=== PATIENT | female | born 1950 | race Two or more races ===

== ENCOUNTER 2020-06-11 14:06 | Outpatient (REF) | payer OTHER, SELFPAY | END 2020-06-11 14:07 | disposition home or self-care (01) | LOC: HO.LAB 14:06 | PROVIDERS: PCP Internal Medicine; Visit Provider Internal Medicine | DX: Z20.828 Contact with and (suspected) exposure to other viral communicable diseases (principal) | CPT/HCPCS: C9803; U0003 ==

== ENCOUNTER 2020-07-18 07:42 | Outpatient (REF) | payer MEDICARE, SELFPAY ==
--- NOTE | 2020-07-18 | MM_ITS ---
EXAMINATION: MM SCREENING DIGITAL BREAST TOMOSYNTHESIS, BILATERAL CLINICAL INFORMATION: Screening. Asymptomatic. The lifetime risk of breast cancer based on the Tyrer-Cuzick Model is 4%. COMPARISON: Mammography: 07/13/2019, 06/19/2018, 05/26/2017 TECHNIQUE: Digital breast tomosynthesis is performed in both the craniocaudal and mediolateral oblique views along with computer-aided detection (CAD). Synthesized 2D images are generated from the tomosynthesis. FINDINGS: There are scattered areas of fibroglandular density (ACR BI-RADS breast composition Category b). There are no significant masses, abnormal calcifications, or other abnormalities. The axilla and skin contours are unremarkable. There are no significant changes from prior studies. MM/MM tomosynthesis screening BI IMPRESSION: No mammographic evidence of malignancy. ASSESSMENT: BI-RADS 1: Negative RECOMMENDATION: Routine annual mammography screening. This patient's information was entered into a reminder system with a target due date for their next mammogram.
== END 2020-07-18 07:43 | disposition home or self-care (01) ==
LOC: HO.MAMMO 07:42
PROVIDERS: PCP Internal Medicine; Visit Provider Internal Medicine
DX: Z12.31 Encounter for screening mammogram for malignant neoplasm of breast (principal)
CPT/HCPCS: 77063; 77067

== ENCOUNTER 2020-09-23 08:43 | Outpatient (REF) | payer MEDICARE, SELFPAY ==
[2020-09-23 09:55] LABS: Alanine Aminotransferase 15 U/L (0-31); Albumin Level 4.3 g/dL (3.5-5.0); Alkaline Phosphatase 74 U/L (39-117); Anion Gap 10 (12-20); Aspartate Amino Transferase 14 U/L (5-31); Bilirubin Total 0.6 mg/dL (0.0-1.0); Blood Urea Nitrogen 13 mg/dL (9-16); Calcium 9.3 mg/dL (8.4-10.2); Carbon Dioxide 28 mmol/L (22-29); Chloride 105 mmol/L (96-108); Cholesterol 142 mg/dL; Estimated Glomerular Filt Rate > 60; Glucose Fasting 104 mg/dL (60-99); HDL Cholesterol 65 mg/dL; LDL Cholesterol Calculated 53 mg/dl; Potassium 4.4 mmol/L (3.3-5.1); Sodium 139 mmol/L (135-145); Triglycerides 120 mg/dL
[2020-09-23 10:11] LABS: Vitamin D 25-OH Total 54.8 ng/mL (>30)
== END 2020-09-23 08:44 | disposition home or self-care (01) ==
LOC: HO.LAB 08:43
PROVIDERS: PCP Internal Medicine; Visit Provider Internal Medicine
DX: E03.9 Hypothyroidism, unspecified (principal)
CPT/HCPCS: 36415; 80053; 80061; 82306; 84443

== ENCOUNTER 2020-09-28 08:26 | Outpatient (REF) | payer MEDICARE, SELFPAY ==
[2020-09-28 11:05] LABS: Thyroid Stimulating Hormone 3.78 uIU/mL (0.32-4.0)
== END 2020-09-28 08:27 | disposition home or self-care (01) ==
LOC: HO.10HDL 08:26
PROVIDERS: Visit Provider Internal Medicine Endocrinology, Diabetes & Metabolism
DX: E03.9 Hypothyroidism, unspecified (principal); M85.89 Other specified disorders of bone density and structure, multiple sites
CPT/HCPCS: 36415; 84439; 84443

== ENCOUNTER 2020-11-11 12:06 | Outpatient (REF) | payer MEDICARE, SELFPAY ==
--- NOTE | ~2020-11-11 | XR_ITS ---
EXAMINATION: XR FOOT, LEFT CLINICAL INFORMATION: Pain in the left foot COMPARISON: None TECHNIQUE: AP, lateral, and oblique views of the left foot. FINDINGS: There is no acute fracture or subluxation. Mild hallux valgus with joint space narrowing at the first metatarsophalangeal joint. Small osteophytes. The soft tissues are unremarkable. No ankle joint effusion. XR/XR foot LT min 3V IMPRESSION: Hallux valgus with mild degenerative change at the first metatarsophalangeal joint.
== END 2020-11-11 12:07 | disposition home or self-care (01) ==
LOC: HO.XRAY 12:06
PROVIDERS: PCP Internal Medicine; Visit Provider Internal Medicine
DX: M79.672 Pain in left foot (principal)
CPT/HCPCS: 73630

== ENCOUNTER 2021-02-10 10:41 | Outpatient (REF) | payer MEDICARE, SELFPAY ==
[2021-02-10 13:58] LABS: Thyroid Stimulating Hormone 1.67 uIU/mL (0.32-4.0)
[2021-02-15 13:37] LABS: N-Telopeptide 25 (see note); NTXCreaRU 127 mg/dL (20-275)
== END 2021-02-10 10:42 | disposition home or self-care (01) ==
LOC: HO.10HDL 10:41
PROVIDERS: Visit Provider Internal Medicine Endocrinology, Diabetes & Metabolism
DX: E03.9 Hypothyroidism, unspecified (principal); M85.89 Other specified disorders of bone density and structure, multiple sites
CPT/HCPCS: 36415; 82523; 84439; 84443

== ENCOUNTER → 2021-02-17 09:08 | Outpatient (BNVA) | payer MEDICARE, SELFPAY | PROVIDERS: PCP Internal Medicine; Visit Provider Internal Medicine Endocrinology, Diabetes & Metabolism | DX: E04.2 Nontoxic multinodular goiter (principal); E03.8 Other specified hypothyroidism; M85.80 Other specified disorders of bone density and structure, unspecified site | CPT/HCPCS: 99212 ==

== ENCOUNTER 2021-03-04 10:13 | Emergency (ER) | payer MEDICARE, SELFPAY ==
[2021-03-04 10:45] VITALS: BP 158/88; PULSE 80; RESP 16; TEMP 36.7; O2SAT 97
[2021-03-04 11:14] VITALS: BMI 26.8
--- NOTE | 2021-03-04 11:53 | ED_ITS ---
HPI - Skin/Abscess/Foreign Bdy General Chief complaint: Skin/Abscess/Foreign Body Stated complaint: rash Time Seen by Provider: 03/04/21 11:53 Source: patient and respiratory care specialist Mode of arrival: ambulatory Limitations: no limitations and language barrier History of Present Illness HPI narrative: 70-year-old female here with complaints of itching rash for 5 days. Worsened at night time. No new medications, detergents, products, foods. Using Benadryl which does give her some improvement Related Data Previous Rx's Medication Instructions Recorded calcium carbonate 600 mg calcium 600 mg PO BID 90 Days #180 tab 02/17/21 (1,500 mg) tablet cholecalciferol (vitamin D3) 25 25 mcg PO DAILY #90 tab 02/17/21 mcg (1,000 unit) tablet levothyroxine 25 mcg tablet 25 mcg PO QAM 90 Days #90 tab 02/17/21 hydrocortisone 2.5 % topical cream 1 appl TOPICAL TID PRN #20 g 03/04/21 hydroxyzine HCl 25 mg tablet 25 mg PO TID PRN #14 tab 03/04/21 Allergies Allergy/AdvReac Type Severity Reaction Status Date / Time aspirin [ASA] Allergy Mild pruritus Verified 09/30/20 11:14 and palpitations nitrofurantoin [Macrobid] Allergy Unknown dizziness Verified 09/30/20 11:14 Penicillins [PENICILLINS] Allergy Unknown Rash Verified 09/30/20 11:14 Darvon AdvReac Mild swelling Uncoded 09/30/20 11:14 Review of Systems Review of Systems: Yes all other systems are reviewed and are negative Constitutional: Constitutional: Reports no additional constitutional complaints, Denies body ache(s), Denies chills, Denies fever(s), Denies headache(s) and Denies weakness Eyes: Eyes: Reports no additional eye complaints and Denies change in vision ENT: Reports system reviewed and no additional complaints, except as documented, Denies dizziness, Denies headache(s), Denies nasal congestion, Denies nasal discharge and Denies neck pain Cardiovascular: Cardiovascular: Reports no additional cardiovascular complaints, Denies chest pain, Denies leg edema and Denies dyspnea Respiratory: Respiratory: Reports no additional respiratory complaints, Denies cough and Denies dyspnea Gastrointestinal: Gastrointestinal: Reports no additional gastrointestinal complaints, Denies abdominal pain, Denies diarrhea, Denies nausea and Denies vomiting Genitourinary: Genitourinary: Reports no additional female genitourinary complaints and Denies urinary incontinence Musculoskeletal: Musculoskeletal: Reports no additional musculoskeletal complaints, Denies back pain, Denies arthralgias, Denies joint swelling, Denies neck pain, Denies numbness and Denies tingling Integumentary/Breasts: Skin/Breast: Reports system reviewed and no additional complaints, except as docu and Reports rash Neurologic: Reports system reviewed and no additional complaints, except as documented, Denies Abnormal speech present, Denies dizziness, Denies headache(s), Denies numbness, Denies tingling and Denies weakness PMFSH Past Medical History Attestation statement: The following information was validated with the patient. Source: old records reviewed and nursing notes reviewed Medical History Hypertension, essential Hypothyroidism Hypovitaminosis D Left foot pain Non-toxic multinodular goiter Osteopenia Subclinical hypothyroidism Surgical History History of arthroscopy of left knee History of cataract surgery History of removal of cyst History of tubal ligation Family History Family History Father Thyroid cancer Mother Hypertension Daughter In good health Brother In good health Sister In good health Social History Social History Alcohol intake: never Advance Directives: No Advance Directives Information Provided: Yes Physical Exam Vital Signs: Vital Signs: Last Vital Signs Temp 98.0 F 03/04/21 10:45 Pulse 80 03/04/21 10:45 Resp 16 03/04/21 10:45 BP 158/88 H 03/04/21 10:45 Pulse Ox 97 03/04/21 10:45 Body Mass Index 26.8 Const: General: cooperative, healthy appearing, comfortable and no acute distress Orientation/consciousness: patient oriented x3 Limitations: no limitations HENMT: Head: Yes normal to inspection Ears: hearing grossly normal bilaterally General nose exam: Normal external nose present Face and sinus: Yes normal facial exam Mouth: Normal oral and palatal mucosa present Throat: Yes posterior oropharynx normal Eyes: General: appearance normal, both eyes and all related structures Pupils: Equal, round and reactive pupils present Neck: Neck: Yes normal visual inspection Chest: Chest palpation & inspection: normal inspection of the chest Resp: Effort & Inspection: normal respiratory effort Auscultation: clear to auscultation bilaterally Cardio: Rate: regular rate Rhythm: regular rhythm Peripheral pulses: Peripheral pulses 2+ throughout GI: Inspection: Yes normal to inspection Palpation (GI): Soft to palpation and nontender Auscultation: normal bowel sounds Back/Spine/Pelvis: Thoracic/Lumbar Spine: thoracic and lumbar spine normal to inspection Skin: Other: Insect bites noted over trunk, upper and lower extremities. Neuro: General: patient oriented x3, no focal motor deficits and normal sensation to monofilament Cranial nerves: Yes Equal, round and reactive pupils present Cognition (Neuro): normal cognition Speech: No Abnormal speech present Gait exam (Neuro): Normal gait present Motor exam (neuro): 5/5 motor strength present throughout Extrem: General: Yes normal to inspection Course Course Course Narrative: 70-year-old female here with itching rash for 5 days. Exam is consistent with insect bites. Rash is worsened at night time with it pain is worsened at night time. Likely bedbugs. We discussed treatment with supportive care. She needs to go home shoulder limited bending. She also is discussed with her landlord today may, evaluate her apartment. Reviewed worrisome signs and symptoms when to return to the emergency department. Comfortable discharge home. Discharge Plan Discharge Clinical Impression: Bed bug bite Patient Disposition: Home, Self-Care Instructions: Insect Bite or Sting (ED), Bed Bugs (ED) Additional Instructions: Wash all the linen in hot water Notify your landlord so they may come inspect your apartment Prescriptions: New hydrocortisone 2.5 % cream 1 appl topical TID PRN (Reason: rash) Qty: 20 RF: 0 hydroxyzine HCl 25 mg tablet 25 mg PO TID PRN (Reason: itching) Qty: 14 RF: 0 No Action calcium carbonate 600 mg calcium (1,500 mg) tablet 600 mg PO BID 90 Days Qty: 180 RF: 3 cholecalciferol (vitamin D3) 25 mcg (1,000 unit) tablet 25 mcg PO DAILY Qty: 90 RF: 2 levothyroxine 25 mcg tablet 25 mcg PO QAM 90 Days Qty: 90 RF: 3 Referrals: Ana Dean MD [Primary Care Provider] - 2 days Interventions: ED Discharge Assessment Last Done: 03/04/21 12:52 Discharge Date/Time: 03/04/21 12:53 Print Language: Maltese
== END 2021-03-04 12:53 | disposition home or self-care (01) ==
PROVIDERS: Emergency Provider Emergency Medicine; PCP Internal Medicine
DX: R21 Rash and other nonspecific skin eruption (principal); I10 Essential (primary) hypertension; Z79.899 Other long term (current) drug therapy
CPT/HCPCS: 99283

== ENCOUNTER 2021-03-08 09:09 | Outpatient (REF) | payer MEDICARE, SELFPAY ==
--- NOTE | ~2021-03-08 | US_ITS ---
EXAMINATION: US THYROID CLINICAL INFORMATION: Follow-up nodules. COMPARISON: None. TECHNIQUE: Linear transducer grayscale and color Doppler examination with attention to the region of the thyroid. FINDINGS: SIZE: Measurements of the thyroid lobes and nodules are given in sagittal, anteroposterior and transverse dimensions respectively. Right Thyroid Lobe: 3.8 x 2.1 x 1.7 cm, volume 6.1 mL. Previously it measured 3.5 x 1.6 x 1.7 cm and volume 5.0 mL. Parenchyma: The gland echotexture is heterogeneous. Thyroid vascularity is hypervascular. Left Thyroid Lobe: 3.3 x 1.9 x 1.6 cm, volume 1.6 mL. Previously it measured 3.8 x 1.6 x 1.8 cm. Parenchyma: The gland echotexture is heterogeneous. Thyroid vascularity is hypervascular. Isthmus: 0.3 cm in maximum AP dimension. Estimated total number of nodules greater than or equal to 1 cm: 2. Die Repair nodules are described as follows: 1. Location: Right upper pole. Size: 0.73 x 0.41 x 0.56 cm, volume 0.09 mL. Previously it measured 0.67 x 0.41 x 0.59 cm and volume 0.08. Nodule characteristics: Composition: Indeterminate. Echogenicity: Anechoic (0). Shape: Wider Margins: Smooth (0). Echogenic Foci: None (0). ACR TI-RADS total points: 5 ACR TI-RADS category: 4 2. Location: Right midpole. Size: 1.44 x 1.12 x 1.37 cm, volume 1.2 mL. Previously it measured 1.33 x 0.96 x 1 0.34 mL of a volume 0.90 mL. Nodule characteristics: Hypoechoic Composition: Solid (2). Echogenicity: Hyperechoic (1). Shape: Wider Margins: Smooth (0). Echogenic Foci: None (0). ACR TI-RADS total points: 4 ACR TI-RADS category: 3 or 4 3. Location: Right lower pole. Size: 0.53 x 0.54 x 0.39 cm, volume 0.06 mL. Previously it measured 0.53 x 0.52 x 0.39 cm and volume 0.06. Nodule characteristics: Composition: Solid (2). Echogenicity: Hyperechoic (1). Shape: Wider Margins: Smooth (0). Echogenic Foci: None (0). ACR TI-RADS total points: 4 ACR TI-RADS category: The are 4 4. Location: Left upper pole. Size: 1.58 x 1.02 x 1.35 cm, volume 1.13 mL. Previously it measured 1.57 x 1.15 x 1.44 cm Nodule characteristics: Composition: indeterminate. Echogenicity: Hyperechoic (1). Shape: Wider Margins: Ill-defined (0). Echogenic Foci: Punctate echogenic foci (3). ACR TI-RADS total points: 6 ACR TI-RADS category: 4 NODES: No lymphadenopathy is seen in the tissue surrounding the thyroid gland. US/US thyroid IMPRESSION: Multiple bilateral thyroid nodules, only 2 nodules are greater than 2 cm right midpole and left upper pole. Recommend one-year follow-up. ACR TI-RADS RECOMMENDATION REFERENCE: Ultrasound-guided fine-needle aspiration, followup ultrasound, no further follow up. * TR1 (0 point) and TR 2 (2 points): No FNA or follow up * TR3 (3 points): FNA if more than or equal to 2.5 cm in maximum dimension, followup ultrasound in 1, 3 and 5 years if 1.5 to 2.4 cm in maximum dimension. * TR4 (4-6 points): FNA if more than or equal to 1.5 cm in maximum dimension, followup ultrasound in 1, 2, 3 and 5 years if 1 to 1.4 cm in maximum dimension. * TR5 (more than or equal to 7 points): FNA if more than or equal to 1 cm in maximum dimension, followup ultrasound every year for 5 years if 0.5 to 0.9 cm in maximum dimension. * TR3, TR4 or TR5 nodules that are below the size threshold for follow up receive no follow up.
== END 2021-03-08 09:10 | disposition home or self-care (01) ==
LOC: HO.US 09:09
PROVIDERS: Visit Provider Internal Medicine Endocrinology, Diabetes & Metabolism
DX: E04.2 Nontoxic multinodular goiter (principal)
CPT/HCPCS: 76536

== ENCOUNTER 2021-03-26 10:59 | Emergency (ER) | payer MEDICARE, SELFPAY ==
[2021-03-26 11:31] VITALS: BP 155/86; PULSE 80; RESP 18; TEMP 36.7; O2SAT 98; BMI 26.6
[2021-03-26 11:59] LABS: Glucose Urine UA NEG (NEG); Leukocyte Esterase Urine 3+ (NEG); Nitrite Urine NEG (NEG); UACC Culture Trigger YES; Urine Blood 3+ (NEG); Urine Ketones NEG (NEG); Urine Protein NEG (NEG-TRACE)
[2021-03-26 12:01] LABS: Appearance Urine CLOUDY; Color Urine YELLOW
--- NOTE | 2021-03-26 12:07 | ED_ITS ---
HPI - Female Genitourinary General Chief complaint: Urogenital-Female Stated complaint: blood in urine Time Seen by Provider: 03/26/21 12:03 Source: patient Mode of arrival: ambulatory Limitations: language barrier (Malaysian-speaking) History of Present Illness HPI Narrative: 71-year-old female who has had recurrent UTIs in the past presenting to the ED with complaints of suprapubic abdominal tenderness with associated dysuria/urinary urgency/frequency/foul-smelling urine x5 days and mild hematuria that started today. Reports that she hold her urine allowed when she is at [facility]. Denies any fevers, chills, radiation of the abdominal pain, flank pain, gross hematuria, vaginal bleeding, clots, diarrhea or constipation, abnormal vaginal discharge or any other symptoms complaints or concerns at this time. MD elicited complaint: dysuria, UTI and other (Hematuria) Onset (ago): day(s) (Five days worse today) Location of symptoms: suprapubic, vaginal and pelvis Severity: moderate Female Urogenital Radiation: Non-Radiating Quality of pain: cramping, burning and aching Consistency: intermittent and progressively worsening Vaginal discharge: none Vaginal bleeding: none Urinary symptoms: Dysuria, Urgency, Frequency, Hematuria, Foul Smelling Urine and Difficulty Urinating Exacerbating factors: urination Relieving factors: none Associated symptoms: other (Suprapubic abdominal tenderness) Treatment prior to arrival: none Sexual activity: No Patient : No Related Data Previous Rx's Medication Instructions Recorded calcium carbonate 600 mg calcium 600 mg PO BID 90 Days #180 tab 02/17/21 (1,500 mg) tablet cholecalciferol (vitamin D3) 25 25 mcg PO DAILY #90 tab 02/17/21 mcg (1,000 unit) tablet levothyroxine 25 mcg tablet 25 mcg PO QAM 90 Days #90 tab 02/17/21 hydrocortisone 2.5 % topical cream 1 appl TOPICAL TID PRN #20 g 03/04/21 hydroxyzine HCl 25 mg tablet 25 mg PO TID PRN #14 tab 03/04/21 levofloxacin 250 mg tablet 250 mg PO DAILY 5 Days #5 tab 03/26/21 phenazopyridine 100 mg tablet 100 mg PO TID PRN #6 tab 03/26/21 (Pyridium) Allergies Allergy/AdvReac Type Severity Reaction Status Date / Time aspirin [ASA] Allergy Mild pruritus Verified 09/30/20 11:14 and palpitations nitrofurantoin [Macrobid] Allergy Unknown dizziness Verified 09/30/20 11:14 Penicillins [PENICILLINS] Allergy Unknown Rash Verified 09/30/20 11:14 Darvon AdvReac Mild swelling Uncoded 09/30/20 11:14 Review of Systems Review of Systems: Constitutional : No Weight loss, No Fever, No Chills, No Night Sweats, No Fatigue, NoMalaise ENT/Mouth: No ear pain, No sore throat, No Difficulty swallowing Cardiovascular : No Chest Pain, No SOB, No Dyspnea on Exertion, No Orthopnea, NoEdema, No Palpitations Respiratory : No Cough, No Sputum, No Wheezing, No Dyspnea Gastrointestinal : Positive suprapubic abdominal pain with urination, No Nausea, No Vomiting, No Diarrhea, No blood streaked emesis, No coffee-ground emesis, No gross hematemesis, No blood streak stool, No gross hematochezia, No Melena Genitourinary : Positive dysuria/urinary frequency/urgency/hematuria, No irregular bleeding, No Urinary Incontinence, No Flank Pain Musculoskeletal : No joint pain, No Myalgias, No Joint Swelling Skin : No Skin Lesions, No rash Neuro : No Weakness, No Numbness, No Paresthesias, No Loss of Consciousness, NoDizziness, No Headache Psych : No Social Issues, Heme/Lymph: No Bruising, No Bleeding,No Lymphadenopathy Endocrine : No Polyuria, No Polydipsia, No Temperature Intolerance Yes all other systems are reviewed and are negative [facility] Past Medical History Attestation statement: The following information was validated with the patient. Medical History Hypertension, essential Hypothyroidism Hypovitaminosis D Left foot pain Non-toxic multinodular goiter Osteopenia Subclinical hypothyroidism Surgical History History of arthroscopy of left knee History of cataract surgery History of removal of cyst History of tubal ligation Family History Family History Father Thyroid cancer Mother Hypertension Daughter In good health Brother In good health Sister In good health Social History Social History Alcohol intake: never Advance Directives: Yes Advance Directives Information Provided: Yes Advance Directives on File: No Patient : No Physical Exam Vital Signs: Vital Signs: Last Vital Signs Temp 98.1 F 03/26/21 11:31 Pulse 80 03/26/21 11:31 Resp 18 03/26/21 11:31 BP 155/86 H 03/26/21 11:31 Pulse Ox 98 03/26/21 11:31 Body Mass Index 26.6 vital signs have been reviewed as normal and appeared to be correct. Blood pressure normal. Heart rate normal. Respiration rate normal. Temperature normal. Oxygen saturation normal. Appearance: Alert. Oriented X3. No acute distress. Head: Normal external exam. Normocephalic. Eyes: PERRLA. EOMI. Conjunctiva and sclera normal. Eyelids normal. ENT: Pharynx normal. Uvula midline. Moist mucous membranes. Neck: Normal inspection. Neck supple. FROM. No adenopathy. No meningeal signs. CVS: Normal heart rate and rhythm. Heart sound normal. No murmurs noted. Pulses normal throughout. Respiratory: No respiratory distress. Painless inspiration. Breath sounds normal. No wheezes/rales/rhonchi noted. Chest nontender. No accessory muscle usage noted or decreased air movement noted. Abdomen: Soft and mild suprapubic tenderness. Nondistended. No guarding. No rigidity. Bowel sounds normal in all 4 quadrants. No distention noted. No organomegaly noted. No visible injury noted. No rebound tenderness. Negative Rovsing sign. Negative obturator's sign. Negative psoas sign. Negative Minor sign. Back: No CVA tenderness. Full range of motion noted. Skin: Skin warm and dry. Normal skin color. Normal skin turgor. No rashes/lesions/lacerations noted. Extremities: Extremities exhibit normal range of motion. Extremities nontender. Neuro: Oriented X 3. No motor deficit. No sensory deficit. Reflexes normal. Normal steady gait. Course Course Course Narrative: 71-year-old female who has had recurrent UTIs in the past presenting to the ED with complaints of suprapubic abdominal tenderness with associated dysuria/urinary urgency/frequency/foul-smelling urine x5 days and mild hematuria that started today. Reports that she hold her urine allowed when she is at [employer]. On exam patient has mild suprapubic abdominal tenderness without guarding. No flank tenderness. No CVA tenderness is noted. UA patient has blood and leukocytes therefore will treat for UTI. No imaging indicated at this time. Will DC home with antibiotics and symptomatic treatment instructions return if any new or worsening symptoms to follow up with primary care provider. Patient understands agrees with this plan. MDM - Female Genitourinary Medical Records Attestation: I reviewed the patient's medical records. Lab Data Attestation: I reviewed the patient's lab results. Labs: Lab Results 03/26/21 Range/Units 11:42 Urine Color YELLOW Urine Appearance CLOUDY Urine pH 6.0 (5.0-8.0) Ur Specific [place] 1.020 (1.005-1.025) Urine Protein NEG (NEG-TRACE) MG/DL Urine Glucose (UA) NEG (NEG) MG/DL Urine Ketones NEG (NEG) MG/DL Urine Blood 3+ H (NEG) Urine Nitrite NEG (NEG) Ur Leukocyte Esterase 3+ H (NEG) Discharge Plan Discharge Clinical Impression: UTI (urinary tract infection) Patient Disposition: Home, Self-Care Instructions: Urinary Tract Infection in Older Adults (ED) Prescriptions: New levofloxacin 250 mg tablet 250 mg PO DAILY 5 Days Qty: 5 RF: 0 phenazopyridine [Pyridium] 100 mg tablet 100 mg PO TID PRN (Reason: pain) Qty: 6 RF: 0 No Action hydrocortisone 2.5 % cream 1 appl topical TID PRN (Reason: rash) Qty: 20 RF: 0 hydroxyzine HCl 25 mg tablet 25 mg PO TID PRN (Reason: itching) Qty: 14 RF: 0 calcium carbonate 600 mg calcium (1,500 mg) tablet 600 mg PO BID 90 Days Qty: 180 RF: 3 cholecalciferol (vitamin D3) 25 mcg (1,000 unit) tablet 25 mcg PO DAILY Qty: 90 RF: 2 levothyroxine 25 mcg tablet 25 mcg PO QAM 90 Days Qty: 90 RF: 3 Referrals: Ana Dean MD [Primary Care Provider] - 2 days Print Language: Malaysian
[2021-03-26 12:15] LABS: Bacteria Urine TRACE /LPF; Squamous Epithelial Cell Urine TRACE /LPF
== END 2021-03-26 12:21 | disposition home or self-care (01) ==
PROVIDERS: Emergency Provider Internal Medicine; PCP Internal Medicine
DX: N39.0 Urinary tract infection, site not specified (principal); I10 Essential (primary) hypertension; R10.30 Lower abdominal pain, unspecified; Z87.440 Personal history of urinary (tract) infections
CPT/HCPCS: 81001; 81003; 87086; 87088; 87186; 99283; 99284

== ENCOUNTER 2021-06-10 11:04 | Outpatient (REF) | payer MEDICARE, SELFPAY ==
[2021-06-10 12:19] LABS: Thyroid Stimulating Hormone 2.44 uIU/mL (0.32-4.0)
[2021-06-17 14:16] LABS: Vitamin D 25-OH, D2 <4 ng/mL; Vitamin D 25-OH, D3 41 ng/mL; Vitamin D 25-OH, Total 41 ng/mL (30-100)
== END 2021-06-10 11:05 | disposition home or self-care (01) ==
LOC: HO.LAB 11:04
PROVIDERS: Visit Provider Internal Medicine
DX: E03.9 Hypothyroidism, unspecified (principal); E55.9 Vitamin D deficiency, unspecified
CPT/HCPCS: 36415; 82306; 84443

== ENCOUNTER 2021-08-24 12:59 | Outpatient (REF) | payer MEDICARE, SELFPAY ==
--- NOTE | ~2021-08-24 | MM_ITS ---
EXAMINATION: MM SCREENING DIGITAL BREAST TOMOSYNTHESIS, BILATERAL CLINICAL INFORMATION: Screening. Asymptomatic. The lifetime risk of breast cancer based on the Tyrer-Cuzick Model is 4%. COMPARISON: Mammography: 07/18/2020, 07/13/2019, 06/19/2018 TECHNIQUE: Digital breast tomosynthesis is performed in both the craniocaudal and mediolateral oblique views along with computer-aided detection (CAD). Synthesized 2D images are generated from the tomosynthesis. Additional right CC view is provided. FINDINGS: There are scattered areas of fibroglandular density (ACR BI-RADS breast composition Category b). There are no significant masses, abnormal calcifications, or other abnormalities. Parenchymal pattern is similar to prior studies. There is no developing density or architectural abnormality. The axilla and skin contours are unremarkable. No significant changes. MM/MM tomosynthesis screening BI IMPRESSION: No mammographic evidence of malignancy. ASSESSMENT: BI-RADS 1: Negative RECOMMENDATION: Routine annual mammography screening. This patient's information was entered into a reminder system with a target due date for their next mammogram.
== END 2021-08-24 13:00 | disposition home or self-care (01) ==
LOC: HO.MAMMO 12:59
PROVIDERS: Visit Provider Internal Medicine
DX: Z12.31 Encounter for screening mammogram for malignant neoplasm of breast (principal)
CPT/HCPCS: 77063; 77067

== ENCOUNTER 2021-12-16 07:30 | Outpatient (REF) | payer MEDICARE, SELFPAY ==
--- NOTE | ~2021-12-16 | MM_ITS ---
EXAMINATION: BONE DENSITOMETRY CLINICAL INDICATION: Other specified disorders of bone density and structure. COMPARISON: Previous BD dated 01/18/2018 and baseline BD dated 03/17/2014. TECHNIQUE: Using a [employer] DXA System (software version: 13.1) manufactured by [employer], dual-energy x-ray absorptiometry was performed of the lumbar spine and left hip. The images are of good technical quality. Summary results are attached. FINDINGS: AP SPINE L1-L3 (excluding L4): The data of L1-L4 has been changed to exclude the L4 vertebral body, because degenerative changes at this level may cause overestimation of lumbar spine density. Current: BMD 0.841 g/cm2, Z-score -1.0, T-score -2.7, osteoporosis, 1.5% decrease from previous, 5.9% decrease from baseline (<5% change is not significant). Prior: BMD 0.854 g/cm2. Baseline: BMD 0.894 g/cm2. LEFT FEMUR, NECK: Current: BMD 0.706 g/cm2, Z-score -0.6, T-score -2.4, osteopenia. Prior: BMD 0.725 g/cm2. Baseline: BMD 0.731 g/cm2. LEFT FEMUR, TOTAL: Current: BMD 0.753 g/cm2, Z-score -0.4, T-score -2.0, osteopenia, 3.5% decrease from previous, 3.7% decrease from baseline (<5% change is not significant). Prior: BMD 0.780 g/cm2. Baseline: BMD 0.782 g/cm2. IDENTIFIED RISK FACTORS: Osteoporosis, height loss, secondary osteoporosis, history of fracture (adult), menopause. HISTORY OF FRACTURE: Other. No insufficiency fracture described. MEDICATIONS: Calcium supplements or multivitamin, vitamin D. MM/XR DEXA axial skeleton IMPRESSION: 1. DIAGNOSIS: Osteoporosis based on the lowest T-score value of -2.7 in the lumbar spine applying World Health Organization criteria. 2. 10-YEAR FRACTURE RISK PREDICTION, FRAX: According to the guidelines, FRAX calculation should only be performed on patients in the osteopenia bone density category. Therefore, FRAX was not performed on this patient. 3. Treatment Recommendations: NOF guidelines recommend consideration for treatment in postmenopausal women and men age 50 and older presenting with the following: -A hip or vertebral (clinical or morphometric) fracture. -T-score less than or equal to -2.5 at the femoral neck or spine after appropriate evaluation to exclude secondary causes. -Low bone mass at the hip or spine and a 10-year fracture probability by FRAX of greater than or equal to 3% for hip fracture or greater than or equal to 20% for major osteoporotic fracture based on the [place] adapted WHO algorithm. 4. Other Recommendations: All treatment decisions require clinical judgment and consideration of individual patient factors, including patient preferences, comorbidities, previous drug use, risk factors not captured in the FRAX model (e.g. frailty, falls, vitamin D deficiency, increased bone turnover, interval significant decline in bone density) and possible under or overestimation of fracture risk by FRAX. Additional medical evaluation for secondary cause of low bone mineral density may be appropriate. FUTURE SCAN RECOMMENDATION: People with diagnosed cases of osteoporosis or at high risk for fracture should have regular bone mineral density tests. For patients eligible for Medicare, routine testing is allowed once every 2 years. The testing frequency can be increased to one year for patients who have rapidly progressing disease, those who are receiving or discontinuing medical therapy to restore bone mass, or have additional risk factors.
== END 2021-12-16 07:31 | disposition home or self-care (01) ==
LOC: HO.MAMMO 07:30
PROVIDERS: PCP Internal Medicine; Visit Provider Internal Medicine
DX: Z13.820 Encounter for screening for osteoporosis (principal); M85.80 Other specified disorders of bone density and structure, unspecified site; Z78.0 Asymptomatic menopausal state
CPT/HCPCS: 77080

== ENCOUNTER 2022-03-30 07:57 | Outpatient (REF) | payer OTHER, SELFPAY ==
--- NOTE | ~2022-03-30 | US_ITS ---
EXAMINATION: US THYROID CLINICAL INFORMATION: Hypothyroidism, unspecified. COMPARISON: Ultrasound soft tissue head/neck thyroid dated 03/08/2021 and 03/09/2020. TECHNIQUE: Linear transducer grayscale and color Doppler examination with attention to the region of the thyroid. FINDINGS: SIZE: Measurements of the thyroid lobes and nodules are given in sagittal, anteroposterior and transverse dimensions respectively. Right Thyroid Lobe: 3.8 x 1.6 x 2.0 cm, volume 6.4 mL. Previously 3.8 x 2.1 x 1.7 cm, volume 6.1 mL. Parenchyma: The gland echotexture is heterogeneous. Thyroid vascularity is increased. Left Thyroid Lobe: 3.9 x 1.8 x 1.3 cm, volume 4.8 mL. Previously 3.3 x 1.9 x 1.6 cm, volume 5.8 mL. Parenchyma: The gland echotexture is heterogeneous. Thyroid vascularity is increased. Isthmus: 0.3 cm in maximum AP dimension. Previously 0.3 cm. Estimated total number of nodules greater than or equal to 1 cm: 2. Time Study Technologist nodules are described as follows: 1. Location: Right superior. Size: 0.6 x 0.4 x 0.7 cm, volume 0.1 mL. Previously: 0.7 x 0.4 x 0.6 cm, volume 0.09 mL. Nodule characteristics: Composition: Cannot be determined (2). Echogenicity: Anechoic (0). Shape: Not taller than wide (0). Margins: Smooth (0). Echogenic Foci: Punctate echogenic foci (3). ACR TI-RADS total points: 5 Previous: 5 ACR TI-RADS category: 4 Previous: 4 Significant change in size (>/= 20% in 2 dimensions and minimal increase of 2 mm or 50% or greater increase in volume): Change in features: Change in ACR TI-RADS risk category: 2. Location: Right mid. Size: 1.5 x 1.1 x 1.6 cm, volume 1.3 mL. Previously: 1.4 x 1.1 x 1.4 cm, volume 1.2 mL. Nodule characteristics: Composition: Solid (2). Echogenicity: Hypoechoic (2). Shape: Not taller than wide (0). Margins: Smooth (0). Echogenic Foci: None (0). ACR TI-RADS total points: 4 Previous: 4 ACR TI-RADS category: 4 Previous: 4 Significant change in size (>/= 20% in 2 dimensions and minimal increase of 2 mm or 50% or greater increase in volume): Change in features: Change in ACR TI-RADS risk category: 3. Location: Right inferior. Size: 0.5 x 0.2 x 0.5 cm, volume 0.03 mL. Previously: 0.5 x 0.5 x 0.4 cm, volume 0.06 mL. Nodule characteristics: Composition: Solid (2). Echogenicity: Hypoechoic (2). Shape: Not taller than wide (0). Margins: Smooth (0). Echogenic Foci: None (0). ACR TI-RADS total points: 4 Previous: 4 ACR TI-RADS category: 4 Previous: 4 Significant change in size (>/= 20% in 2 dimensions and minimal increase of 2 mm or 50% or greater increase in volume): Change in features: Change in ACR TI-RADS risk category: 4. Location: Left superior. Size: 1.3 x 0.9 x 1.5 cm, volume 0.9 mL. Previously: 1.6 x 1.0 x 1.4 cm, volume 1.1 mL. Nodule characteristics: Composition: Cannot be determined (2). Echogenicity: Hyperechoic (1). Shape: Not taller than wide (0). Margins: Smooth (0). Echogenic Foci: Punctate echogenic foci (3). ACR TI-RADS total points: 6 Previous: 6 ACR TI-RADS category: 4 Previous: 4 Significant change in size (>/= 20% in 2 dimensions and minimal increase of 2 mm or 50% or greater increase in volume): Change in features: Change in ACR TI-RADS risk category: 5. Location: Left inferior. Size: 0.3 x 0.3 x 0.3 cm, volume 0.02 mL. Previously: 0.5 x 0.5 x 0.7 cm, volume 0.07 mL. Nodule characteristics: Composition: Solid (2). Echogenicity: Hyperechoic (1). Shape: Not taller than wide (0). Margins: Ill-defined (0). Echogenic Foci: Punctate echogenic foci (3). ACR TI-RADS total points: 6 Previous: 6 ACR TI-RADS category: 4 Previous: 4 Significant change in size (>/= 20% in 2 dimensions and minimal increase of 2 mm or 50% or greater increase in volume): Change in features: Change in ACR TI-RADS risk category: NODES: No lymphadenopathy is seen in the tissue surrounding the thyroid gland. US/US thyroid IMPRESSION: Heterogeneous hypervascular thyroid gland with multiple bilateral nodules. Continued ultrasound follow-up recommended. ACR TI-RADS RECOMMENDATION REFERENCE: Ultrasound-guided fine-needle aspiration, followup ultrasound, no further follow up. * TR1 (0 point) and TR 2 (2 points): No FNA or follow up * TR3 (3 points): FNA if more than or equal to 2.5 cm in maximum dimension, followup ultrasound in 1, 3 and 5 years if 1.5 to 2.4 cm in maximum dimension. * TR4 (4-6 points): FNA if more than or equal to 1.5 cm in maximum dimension, followup ultrasound in 1, 2, 3 and 5 years if 1 to 1.4 cm in maximum dimension. * TR5 (more than or equal to 7 points): FNA if more than or equal to 1 cm in maximum dimension, followup ultrasound every year for 5 years if 0.5 to 0.9 cm in maximum dimension. * TR3, TR4 or TR5 nodules that are below the size threshold for follow up receive no follow up.
[2022-03-30 08:43] LABS: Alanine Aminotransferase 11 U/L (0-31); Albumin Level 4.4 g/dL (3.5-5.0); Alkaline Phosphatase 51 U/L (39-117); Anion Gap 16 (12-20); Aspartate Amino Transferase 12 U/L (5-31); Bilirubin Total 0.2 mg/dL (0.0-1.0); Blood Urea Nitrogen 17 mg/dL (9-16); Calcium 9.3 mg/dL (8.4-10.2); Carbon Dioxide 23 mmol/L (22-29); Chloride 107 mmol/L (96-108); Cholesterol 149 mg/dL; Estimated Glomerular Filt Rate > 60; Glucose Fasting 112 mg/dL (60-99); HDL Cholesterol 62 mg/dL; LDL Cholesterol Calculated 69 mg/dl; Potassium 4.2 mmol/L (3.3-5.1); Sodium 142 mmol/L (135-145); Total Protein 7.3 g/dL (6.5-8.0); Triglycerides 92 mg/dL
[2022-03-30 09:06] LABS: Free T4 (Free Thyroxine) 0.86 ng/dL (0.71-1.85); Thyroid Stimulating Hormone 3.81 uIU/mL (0.32-4.0)
== END 2022-03-30 07:58 | disposition home or self-care (01) ==
LOC: HO.US 07:57
PROVIDERS: Absent Provider Internal Medicine; PCP Internal Medicine; Visit Provider Internal Medicine Endocrinology, Diabetes & Metabolism
DX: Z00.00 Encounter for general adult medical examination without abnormal findings (principal); E04.2 Nontoxic multinodular goiter; E03.9 Hypothyroidism, unspecified; E78.5 Hyperlipidemia, unspecified
CPT/HCPCS: 36415; 76536; 80053; 80061; 84439; 84443

== ENCOUNTER → 2022-04-05 13:58 | Outpatient (BNVA) | payer MEDICARE, SELFPAY | PROVIDERS: PCP Internal Medicine; Visit Provider Internal Medicine Endocrinology, Diabetes & Metabolism | DX: E03.9 Hypothyroidism, unspecified (principal); E04.2 Nontoxic multinodular goiter; M85.80 Other specified disorders of bone density and structure, unspecified site | CPT/HCPCS: 99212 ==

== ENCOUNTER 2022-04-06 18:05 | Outpatient (REF) | payer MEDICARE, SELFPAY | END 2022-04-06 18:06 | disposition home or self-care (01) | LOC: HO.LNP 18:05 | PROVIDERS: Visit Provider Internal Medicine | DX: N39.0 Urinary tract infection, site not specified (principal) | CPT/HCPCS: 87086; 87088; 87186 ==

== ENCOUNTER 2022-08-25 13:59 | Outpatient (REF) | payer MEDICARE, SELFPAY ==
--- NOTE | ~2022-08-25 | MM_ITS ---
EXAMINATION: MM SCREENING DIGITAL BREAST TOMOSYNTHESIS, BILATERAL CLINICAL INFORMATION: Screening. Asymptomatic. The lifetime risk of breast cancer based on the Tyrer-Cuzick Model is 2.7%. COMPARISON: Mammography: August 24, 2021 and studies dating back to November 20, 2014 TECHNIQUE: Digital breast tomosynthesis is performed in both the craniocaudal and mediolateral oblique views along with computer-aided detection (CAD). Synthesized 2D images are generated from the tomosynthesis. FINDINGS: There are scattered areas of fibroglandular density (ACR BI-RADS breast composition Category b). There are no new significant masses, abnormal calcifications, or other abnormalities. There are some bilateral well-circumscribed densities which are stable. MM/MM tomosynthesis screening BI IMPRESSION: No significant changes ASSESSMENT: BI-RADS 1: Negative RECOMMENDATION: Routine annual mammography screening. This patient's information was entered into a reminder system with a target due date for their next mammogram.
== END 2022-08-25 14:00 | disposition home or self-care (01) ==
LOC: HO.MAMMO 13:59
PROVIDERS: PCP Internal Medicine; Visit Provider Internal Medicine
DX: Z12.31 Encounter for screening mammogram for malignant neoplasm of breast (principal)
CPT/HCPCS: 77063; 77067

== ENCOUNTER 2022-09-08 11:41 | Outpatient (REF) | payer OTHER, SELFPAY ==
[2022-09-08 12:56] LABS: Influenza A PCR NEGATIVE (Negative); Influenza B PCR NEGATIVE (Negative); Resp Syncy Virus RNA Qual PCR NEGATIVE (Negative); SARS COV2 PCR INHOUSE POSITIVE (Negative)
== END 2022-09-08 11:42 | disposition home or self-care (01) ==
LOC: HO.LAB 11:41
PROVIDERS: PCP Internal Medicine; Visit Provider Internal Medicine
DX: R09.89 Other specified symptoms and signs involving the circulatory and respiratory systems (principal); Z20.822 Contact with and (suspected) exposure to COVID-19
CPT/HCPCS: 0241U

== ENCOUNTER 2022-11-07 08:07 | Outpatient (REF) | payer OTHER, SELFPAY ==
[2022-11-07 09:49] LABS: Alanine Aminotransferase 21 U/L (0-31); Albumin Level 4.5 g/dL (3.5-5.0); Alkaline Phosphatase 43 U/L (39-117); Anion Gap 14 (12-20); Aspartate Amino Transferase 16 U/L (5-31); Bilirubin Total 0.8 mg/dL (0.0-1.0); Blood Urea Nitrogen 14 mg/dL (9-16); Calcium 9.3 mg/dL (8.4-10.2); Carbon Dioxide 27 mmol/L (22-29); Chloride 106 mmol/L (96-108); Cholesterol 171 mg/dL; Estimated Glomerular Filt Rate 59; Glucose Fasting 109 mg/dL (60-99); HDL Cholesterol 70 mg/dL; LDL Cholesterol Calculated 80 mg/dl; Potassium 4.6 mmol/L (3.3-5.1); Sodium 142 mmol/L (135-145); Triglycerides 107 mg/dL
[2022-11-07 10:11] LABS: Thyroid Stimulating Hormone 3.36 uIU/mL (0.32-4.0)
== END 2022-11-07 08:08 | disposition home or self-care (01) ==
LOC: HO.LAB 08:07
PROVIDERS: PCP Internal Medicine; Visit Provider Internal Medicine
DX: E55.9 Vitamin D deficiency, unspecified (principal); E03.9 Hypothyroidism, unspecified; I10 Essential (primary) hypertension
CPT/HCPCS: 36415; 80053; 80061; 82306; 84443

== ENCOUNTER 2023-02-15 09:50 | Outpatient (REF) | payer OTHER, SELFPAY ==
[2023-02-15 11:44] LABS: Thyroid Stimulating Hormone 2.84 uIU/mL (0.32-4.0); Vitamin D 25-OH Total 37.8 ng/mL (>30)
== END 2023-02-15 09:51 | disposition home or self-care (01) ==
LOC: HO.LAB 09:50
PROVIDERS: PCP Internal Medicine; Visit Provider Internal Medicine
DX: E03.9 Hypothyroidism, unspecified (principal); E55.9 Vitamin D deficiency, unspecified
CPT/HCPCS: 36415; 82306; 84443

== ENCOUNTER 2023-02-20 09:09 | Outpatient (AMB) | payer OTHER, SELFPAY ==
[2023-02-20 09:29] VITALS: BP 146/100; BMI 26.3
--- NOTE | 2023-02-20 09:29 | A.OFFPC_ITS ---
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: No Accompanied by: Self / Same As Patient Allergies nitrofurantoin [Macrobid] Allergy (Intermediate, Verified 02/20/23 09:41) dizziness Penicillins [PENICILLINS] Allergy (Intermediate, Verified 02/20/23 09:41) Rash aspirin [ASA] Allergy (Mild, Verified 02/20/23 09:41) pruritus and palpitations Darvon Adverse Reaction (Mild, Uncoded 02/20/23 09:41) swelling Medication List - Last Reconciled 02/20/23 by Ana Bermudez MD alendronate 70 mg PO QWEEK 90 days levothyroxine 25 mcg PO QAM 90 days Tobacco use date assessed: 11/16/22 Fall risk assessment: No Falls in past year Last assessed Fall Risk: 02/20/23 Dental Screening Dental Screen Date: 02/20/23 Did you have a dental visit in the last 12 months?: No Did you have a dental problem in the last 6 months where you did not have access to dental care?: No Was dental information given to patient?: Patient has dentist HPI HPI Comments History of Present Illness Details This is a 72-year-old female with hypothyroidism and osteoporosis that comes today for follow-up on her conditions. Last TSH was normal. Last bone density was done December 2021 showing osteoporosis and has been on alendronate since. Blood pressure borderline normal to elevated. Mammogram done August 2022. Colonoscopy done 2018. No chest pain or shortness of breath. Moving to [place] this month. [facility] Medical History (Updated 02/20/23 @ 10:14 by Ana Bermudez MD) Hypertension, essential Hypothyroidism Hypovitaminosis D Left foot pain Left sided sciatica Non-toxic multinodular goiter Osteoporosis Physical exam Subclinical hypothyroidism Surgical History History of arthroscopy of left knee History of cataract surgery History of removal of cyst History of tubal ligation Family History Father Thyroid cancer Mother Hypertension Daughter In good health Brother In good health Sister In good health Social History Housing: Apartment Alcohol intake: never Patient Tobacco Use Status: Never used Tobacco e-Cigarette/Vaping Use: Never Used Second Hand Smoke Exposure: No service: No Current occupational status: retired Cognitive needs: Yes Hearing needs: No Vision needs: Yes Questionnaire Thrive Questionnaire Date Thrive assessed: 09/08/22 JEMIMA-7 AMB Questionnaire JEMIMA-7 Date JEMIMA - 7 assessed: 09/08/22 Source: Developed by Drs. Forest Layton, Waleska Chavez, Dane Puckett and colleagues, with an educational mona from [facility]. Review of Systems Const All systems reviewed & are unremarkable except as noted in HPI and below Eyes Reports no additional complaints, Denies change in vision and Denies other visual disturbances Card Denies chest pain at rest, Denies chest pain with activity, Denies edema, Denies irregular heart rhythm, Denies claudication, Denies dyspnea, Denies dyspnea on exertion, Denies orthopnea, Denies paroxysmal nocturnal dyspnea and Denies slow heart rate Resp Denies cough, Denies dyspnea and Denies dyspnea on exertion GI Denies abdominal pain, Denies change in bowel habits, Denies excessive flatus, Denies nausea and Denies vomiting Denies urinary incontinence, Denies urinary hesitancy and Denies urinary urgency Musc Denies abnormal gait, Denies atrophy, Denies deformity and Denies limited range of motion Skin/Breast Denies bleeding lesions, Denies changing lesions and Denies rash Neuro Denies abnormal gait and Denies lack of coordination Physical exam (Primary Care) Vital Signs: Last Vital Signs BP 146/100 H 02/20/23 09:29 BMI result Body Mass Index 26.3 Tobacco/Smoking Status: Tobacco use Status Tobacco use date assessed 11/16/22 02/20/23 09:30 Patient Tobacco Use Status Never used Tobacco 02/20/23 09:30 e-Cigarette/Vaping Use Never Used 02/20/23 09:30 Thrive Assessment: Date of Thrive Assessment Date Thrive assessed 09/08/22 02/20/23 09:30 Eyes General: appearance normal, both eyes and all related structures Eyelids: Yes eyelids normal Conjunctivae: conjunctivae normal Neck Neck: Yes normal visual inspection and Yes supple Resp Effort & Inspection: normal respiratory effort Auscultation: clear to auscultation bilaterally Cardio Jugular venous distension: no JVD Rate: regular rate Rhythm: regular rhythm Heart sounds: S1 normal heart sound present and S2 normal heart sound present Extrem General: Yes full ROM Assessment and Plan Assessment & Plan (1) Hypothyroidism: Code(s): E03.9 - Hypothyroidism, unspecified Qualifiers: Hypothyroidism type: unspecified Qualified Code(s): E03.9 - Hypothyroidism, unspecified Plan: Continue levothyroxine. (2) Osteoporosis: Code(s): M81.0 - Age-related osteoporosis without current pathological fracture Plan: Continue alendronate up to 2026. Repeat bone density 2023. Medications: New aluminum chloride 20% 1 appl topical 2XW 30 days PRN 35 mL 1RF excessive sweating Refilled alendronate 70 mg PO QWEEK 90 days 13 tabs 1RF M81.0 - Age-related osteoporosis without current pathological fracture levothyroxine 25 mcg PO QAM 90 days 90 tabs 3RF E03.9 - Hypothyroidism, unspecified Coding Level of Care Code Est Pt Level 3 (24798) Diagnoses Hypothyroidism E03.9 Hypothyroidism type: unspecified Osteoporosis M81.0 Time Spent (min) 18
[2023-02-20 10:12] VITALS: BP 138/80
== END 2023-02-20 09:52 | disposition home or self-care (01) ==
PROVIDERS: PCP Internal Medicine; Visit Provider Internal Medicine
DX: E03.9 Hypothyroidism, unspecified (principal); M81.0 Age-related osteoporosis without current pathological fracture
CPT/HCPCS: 99213